=== PATIENT | female | born 1970 | race Caucasian/White ===

== ENCOUNTER → 2022-03-24 | Outpatient (CLI) | payer OTHER, SELFPAY ==
--- NOTE | 2022-03-24 09:21 | EKG12_ITS ---
Test Reason : PREOP Blood Pressure : / mmHG Vent. Rate : 079 BPM Atrial Rate : 079 BPM P-R Int : 160 ms QRS Dur : 066 ms QT Int : 400 ms P-R-T Axes : 039 011 028 degrees QTc Int : 458 ms Normal sinus rhythm Normal ECG Confirmed by JULIEN GOMEZ, YEIMY ([id number]), electronic news gathering editor BRISA HEAD ([id number]) on 03/24/2022 2:08:40 PM Referred By: DIXIE Confirmed By:YEIMY VICTORIA MD
[2022-03-24 10:00] LABS: Hematocrit 46.7 % (37-47); Hemoglobin 15.6 g/dL (12.0-15.0); Mean Corp Hgb Conc 33.4 g/dL (32-36); Mean Corpuscular Hgb 30.4 pg (27.0-32.0); Mean Platelet Vol. 11.5 fl (6.2-12.0); Platelet Count 220 K/mm3 (150-450); RBC Distribution Width CV 12.4 % (11.6-14.6); RBC Distribution Width SD 41.2 fl (35.1-43.9); Red Blood Count 5.13 M/mm3 (4.2-5.4); White Blood Count 10.2 K/mm3 (4.4-11.0)
[2022-03-24 10:25] LABS: Hemoglobin A1c 7.2 % (3.8-5.6)
[2022-03-24 10:45] LABS: Anion Gap 2 (5-15); BUN 12 mg/dL (7-18); BUN/Creat Ratio 13.4 RATIO (10-20); Calcium,Total 9.3 mg/dL (8.5-10.1); Chloride 106 mmol/L (98-107); Creatinine, Serum 0.89 mg/dL (0.55-1.02); EST Glomerular Filtration Rate 70 mL/min (>60); Est Glom Filt Rate - Afr Amer 85 mL/min (>60); Glucose 142 mg/dL (74-106); Potassium 4.2 mmol/L (3.5-5.1); Sodium Level 136 mmol/L (136-145)
== END | disposition home or self-care (01) ==
PROVIDERS: Physician Assistant; PCP Physician Assistant; Visit Provider Orthopaedic Surgery
DX: Z01.812 Encounter for preprocedural laboratory examination (principal)
CPT/HCPCS: 36415; 80048; 83036; 85027; 93005

== ENCOUNTER → 2022-04-14 | Outpatient (CLI) | payer OTHER, SELFPAY ==
--- NOTE | 2022-04-14 12:50 | VDLE_ITS ---
Reason For Study: LLE EDEMA RIGHT LEFT CFV is compressible, spontaneous, phasic, GSV is normal. competent and demonstrates normal CFV is compressible, spontaneous, phasic, augmentation. competent, and demonstrates normal Procedure augmentation. This is a venous duplex using B-mode, color FV is compressible, spontaneous, phasic, flow and spectral Doppler. competent and demonstrates normal Exam performed in department. augmentation. A preliminary report was called and/or faxed POP V is compressible, spontaneous, phasic, to Dr. Hernandez @ [phone] @ 1:15 pm. competent and demonstrates normal augmentation. T/P Trunk is compressible. PTV is compressible. LT PerV is compressible. LT Gastrocnemius V is compressible. Non-vascular structure noted in the LT Pop Fossa Space measuring approx 3.0 x 4.5 x 4.5cm. VL/Venous Duplex US, Unilateral Interpretation Summary Deep veins of the left lower extremity are patent and compressible segmentally. There is no evidence of left lower extremity deep vein thrombosis. Valvular competence appears intac t within the proximal deep venous system on the left . The left great saphenous vein appears patent a nd compressible segmentally. A non-vascular, hypoechoic structure is noted in the left poplitea l space, measuring 3.0 cm x 4.5 cm x 4.5 cm. This probably represents a popliteal cyst. Clinical c orrelation is advised. Ordering Physician: Irineo Hernandez Referring Physician: Mary Jo Kwon Performed By: Vaishali Cornelius, SHAYNA, RVT
== END | disposition home or self-care (01) ==
LOC: CVS 12:48
PROVIDERS: PCP Physician Assistant; Referring Provider Orthopaedic Surgery; Visit Provider Orthopaedic Surgery
DX: R60.0 Localized edema (principal); M79.662 Pain in left lower leg
CPT/HCPCS: 93971

== ENCOUNTER → 2024-02-23 | Outpatient (CLI) | payer OTHER, SELFPAY ==
[2024-02-23 09:01] LABS: Absolute Lymphocyte Count 2.92 X10^3/uL (0.83-4.51); Absolute Neutrophil Count 4.6 X10^3/uL (2.0-7.7); Basophil# 0.05 X10^3/uL; Basophil% 0.6 % (0-1); Eosinophil# 0.24 X10^3/uL; Eosinophils% 2.9 % (0-5); Hematocrit 45.5 % (37-47); Hemoglobin 15.2 g/dL (12.0-15.0); Lymphocyte # 2.92 X10^3/ul (0.83-4.51); Lymphocyte % 35.4 % (19-41); Mean Corp Hgb Conc 33.4 g/dL (32-36); Mean Corpuscular Hgb 29.5 pg (27.0-32.0); Mean Corpuscular Volume 88.3 fL (81-99); Mean Platelet Vol. 11.8 fl (6.2-12.0); Monocyte# 0.44 X10^3/uL; Monocyte% 5.3 % (0-10); NRBC Flagged by Analyzer 0 % (0-5); Neutrophil # 4.56 X10^3/uL (2.7-7.7); Neutrophil % 55.4 % (47-70); Platelet Count 213 K/mm3 (150-450); RBC Distribution Width CV 12.3 % (11.6-14.6); Red Blood Count 5.15 M/mm3 (4.2-5.4); White Blood Count 8.2 K/mm3 (4.4-11.0)
[2024-02-23 09:23] LABS: Hemoglobin A1c 6.2 % (3.8-5.6)
[2024-02-23 09:35] LABS: ALB/GLOB Ratio 0.8 RATIO (0.9-2.4); AST(SGOT) 22 U/L (15-37); Alanine Aminotransfer ALT/SGPT 29 U/L (13-56); Albumin, Serum 3.5 g/dL (3.2-5.0); Alkaline Phosphatase 82 U/L (45-117); Anion Gap 6 (5-15); BUN 19 mg/dL (7-18); BUN/Creat Ratio 23.8 RATIO (10-20); Calcium,Total 9.4 mg/dL (8.5-10.1); Chloride 106 mmol/L (98-107); Cholesterol 202 mg/dL (200); EST Glomerular Filtration Rate 80 mL/min (>60); Est Glom Filt Rate - Afr Amer 96 mL/min (>60); Ferritin 208 ng/mL (8-252); Globulin 4.4 g/dL (2.2-4.2); Glucose 132 mg/dL (74-106); High Density Lipoprotein 74 mg/dL; Iron 73 ug/dL (50-170); Iron Binding Capacity,Total 313 ug/dL (250-450); PERCENT IRON SATURATION 23.3 % (15.0-55.0); Potassium 3.9 mmol/L (3.5-5.1); Protein, Total 7.9 g/dL (6.4-8.2); Sodium Level 139 mmol/L (136-145); T4 Total, Thyroxin 11.5 ug/dL (4.8-13.9); Thyroid Stim Hormone (TSH) 0.66 uIU/mL (0.358-3.74); Triglycerides 184 mg/dL; Very Low Density Lipoprotein 37 mg/dL (5-40)
[2024-02-25 15:23] LABS: Vitamin B12 578 pg/mL (211-911); Vitamin D,25 Hydroxy 83.8 ng/mL
[2024-02-26 14:08] LABS: Methylmalonic Acid Bld 194 nmol/L (0-378)
[2024-02-29 09:07] LABS: Folate, Hemolysate Test > 620.0 ng/mL (Not Estab.); Folate, RBC (Hct) Test 45.7 % (34.0-46.6); Folates, RBC Test > 1357 ng/mL (>498); Transferrin 240 mg/dL (192-364); Vitamin B1, Thiamine 191.5 nmol/L (66.5-200.0); Zinc, Plasma or Serum 91 ug/dL (44-115)
== END | disposition home or self-care (01) ==
PROVIDERS: PCP Physician Assistant
DX: E78.00 Pure hypercholesterolemia, unspecified (principal); E11.9 Type 2 diabetes mellitus without complications; K76.2 Central hemorrhagic necrosis of liver; E05.90 Thyrotoxicosis, unspecified without thyrotoxic crisis or storm; D64.9 Anemia, unspecified; D50.9 Iron deficiency anemia, unspecified; E53.8 Deficiency of other specified B group vitamins; E56.9 Vitamin deficiency, unspecified; E55.9 Vitamin D deficiency, unspecified; R79.0 Abnormal level of blood mineral
CPT/HCPCS: 36415; 80053; 80061; 82306; 82607; 82728; 82747; 83036; 83540; 83550; 83921; 84425; 84436; 84443; 84466; 84630; 85014; 85025

== ENCOUNTER 2024-09-23 05:58 | Day surgery (SDC) | payer BC, SELFPAY ==
[2024-09-23] VITALS (9 sets, daily range): BP systolic 123–156; BP diastolic 80–102; PULSE 76–105; RESP 14–18; TEMP 36–36.3; O2SAT 95–100; BMI 32.1
[2024-09-23] MEDS: 0.9% Normal Saline (1000mL) 1,000 ML 15 ML IV (06:49)
--- NOTE | 2024-09-23 07:24 | PCM.PRE.AN2 ---
ASA Classification* ASA Classification ASA Classification: 2 Assessment & Plan Anesthesia* Anesthesia Assessment Anesthesia Assessment: Discussed sedation and/or anesthesia options, risks, benefits, and alternatives with patient/parents/legal guardian/POA. Questions invited. The patient/parents/legal guardian/POA seems to understand and agrees to proceed with anesthesia plan. Reviewed the physical assessment, medical history, allergy history and patient home medications list prior to surgery/procedure/anesthetic and documented any changes. Performed airway and anesthesia risk assessments. Anesthesia Type Anesthesia Type: MAC (GA bkup) Anesthesia Focused Assessment* Temperature: 97.2 F Pulse Rate: 76 Blood Pressure: 123/85 Respiratory Rate: 18 Pulse Ox: 98 Airway Assessment Mouth opens: >3 cm Mallampati Score: II Focused Labs Anesthesia Preop lab: CBC WBC 8.2 K/mm3 (4.4-11.0) 02/23/24 07:51 02/23/24 RBC 5.15 M/mm3 (4.2-5.4) 02/23/24 07:51 02/23/24 Hgb 15.2 g/dL (12.0-15.0) H 02/23/24 07:51 02/23/24 Hct 45.5 % (37-47) 02/23/24 07:51 02/23/24 Plt Count 213 K/mm3 (150-450) 02/23/24 07:51 02/23/24 CHEMISTRY Potassium 3.9 mmol/L (3.5-5.1) 02/23/24 07:51 02/23/24 Sodium 139 mmol/L (136-145) 02/23/24 07:51 02/23/24 BUN 19 mg/dL (7-18) H 02/23/24 07:51 02/23/24 Creatinine 0.80 mg/dL (0.55-1.02) 02/23/24 07:51 02/23/24 Glucose 132 mg/dL (74-106) H 02/23/24 07:51 02/23/24 TSH 0.66 uIU/mL (0.358-3.74) 02/23/24 07:51 02/23/24 COAG Pre-Assessment Diagnosis/Proposed Procedure Planned Operative Procedure(s): (L) Left second and third hammer toe correction with omar osteotomy to second metatarsal. Anesthesia History Anesthesia History - health information manager: Anesthesia History - health information manager Hx Hospitalization Yes: 10/23/23 BARIATRIC 09/19/24 09:17 SURGERY Any Problems With Anesthesia Yes: N&V 09/19/24 09:17 Cholinesterase deficiency No 09/19/24 09:17 You/Your Family Experience No 09/19/24 09:17 fever (hyperthermia) with Relationship Recent Exposure to Contagious No 09/23/24 06:39 Disease Does patient have nerve No 09/19/24 09:17 stimulator Patient instructed to have device shut off --Does patient have Pacemaker or ICD? When Was Last Pacemaker Check QUESTION #4 FULL TEXT: You/Your Family Experience fever (hyperthermia) with Anesthesia Last Oral Intake Last Oral intake: Last Oral Intake NPO since 23:30 09/23/24 06:39 Meds taken in AM with sips of No 09/23/24 06:39 water? Meds patient instructed to take am of surgery PONV PONV - health information manager: PONV - health information manager Female Yes 09/19/24 09:17 HX of Motion Sickness Yes 09/19/24 09:17 HX of N/V After Surgery Yes 09/19/24 09:17 Non-Smoker No 09/19/24 09:17 Duration of Surgery greater Yes 09/19/24 09:17 than 60 minutes Number of Risk Factors 4 09/19/24 09:17 PONV Score Severe Risk 09/19/24 09:17 Height & Weight Height & Weight: Anesthesia: Height & Weight Height 5 ft 7 in 09/23/24 06:39 Weight: 93.1 kg 09/23/24 06:39 Body Mass Index (BMI) 32.1 09/23/24 06:39 Respiratory Assessment Respiratory Assessment - health information manager: Respiratory Tract Infection Hx - health information manager Hx Respiratory Tract Infection No 09/19/24 09:17 STOP Sleep Apnea STOP Sleep Apnea - health information manager: STOP Sleep Apnea - health information manager Hx Hypertension No 09/19/24 09:17 Hx Sleep Apnea No 09/19/24 09:17 CPAP No 09/19/24 09:17 BIPAP Do you snore loudly (louder No 09/19/24 09:17 than talking or can be heard Do you often feel tired/ No 09/19/24 09:17 fatigued/ sleepy during daytime? Has anyone observed you stop No 09/19/24 09:17 breathing during sleep? STOP Results Negative 09/19/24 09:17 QUESTION #5 FULL TEXT : Do you snore loudly (louder than talking or can be heard through closed doors)? 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 Specify any problems Hx of Preganancy in last 3 No 09/19/24 09:17 Months Nurse Filling Out Transfusion VCHRISTIN 09/19/24 09:17 & Questions: Date: 09/19/24 09/19/24 09:17 Time: 09:19 09/19/24 09:17 Patient unable to answer at this time (ie. confused, unrespo /Reproduction History /Reproductive History - health information manager: /Reproductive Hx- health information manager Hx Now Gestational Age (in weeks): EDC: Hx Hx Para Hx Section SAB Active Medications Active Medications: Current Medications Generic Name Dose Route Start Last Admin Trade Name Freq PRN Reason Stop Dose Admin Cefazolin Sodium 2 gm/ N/A 20 mls @ 400 mls/hr 09/23/24 07:30 IV 09/23/24 07:32 PREOP ONE Sodium Chloride 1,000 mls @ 15 mls/hr 09/23/24 06:10 09/23/24 06:49 IV 09/28/24 19:29 15 mls/hr .Q48H JAVI Administration Protocol [facility] Medical History Wears glasses Post-menopausal DVT (deep venous thrombosis) Injury of head and neck Non-smoker History of irregular heartbeat History of stress test Obesity Allergic rhinitis Menopause Umbilical hernia Hyperlipidemia Hypertension Home Medications ?Medication ?Instructions ?Recorded ?Last Taken ?Type aspirin 81 mg tablet,delayed 81 mg PO DAILY 03/01/24 09/22/24 History release (Adult Aspirin Regimen) biotin 1,000 mcg chewable tablet 1,000 mcg PO DAILY 03/01/24 09/22/24 History cholecalciferol (vitamin D3) 350 350 mcg PO DAILY 03/01/24 09/18/24 History mcg (14,000 unit) oral wafer multivitamin (Daily Multi-Vitamin 1 tab PO DAILY 09/19/24 09/22/24 History tablet) thiamine HCl (vitamin B1) 50 mg 50 mg PO DAILY 09/19/24 09/22/24 History tablet (Vitamin B-1) calcium carbonate (Calcium 500) 500 mg PO DAILY 09/23/24 09/22/24 History Allergy/AdvReac Type Severity Reaction Status Date / Time No Known Allergies Allergy Verified 09/23/24 06:33 Family History Other CAD (coronary artery disease) Heart disease Hypertension Myocardial infarction Surgical History Hx of anterior cruciate ligament surgery Hx of umbilical hernia repair Hx laparoscopic cholecystectomy History of partial hysterectomy History of bariatric surgery Social History Smoking Status: Never smoker alcohol intake: current details: occasional Review of Systems (Anesthesia) ROS Narrative System reviewed and no additional complaints, except as documented.
--- NOTE | 2024-09-23 07:30 | RAD_ITS ---
PROCEDURE: TOE(S) MIN 2 VIEWS; O.R. FLUORO FOR C-ARM REASON FOR EXAM: Left 2nd and 3rd toe hammertoe corrections, with additional surgeries. TECHNIQUE: Intraoperative fluoroscopy, also with 6 fluoroscopic images obtained. COMPARISON: None. RAD/Toe(s) Min 2 Views IMPRESSION: Intraoperative fluoroscopy left 2nd and 3rd toes, also with 6 fluoroscopic imag es obtained during surgery of the 2nd and 3rd toes. Reading Location: [id number]
--- NOTE | 2024-09-23 07:30 | RAD_ITS ---
PROCEDURE: TOE(S) MIN 2 VIEWS; O.R. FLUORO FOR C-ARM REASON FOR EXAM: Left 2nd and 3rd toe hammertoe corrections, with additional surgeries. TECHNIQUE: Intraoperative fluoroscopy, also with 6 fluoroscopic images obtained. COMPARISON: None. RAD/O.R. Fluoro for C-Arm IMPRESSION: Intraoperative fluoroscopy left 2nd and 3rd toes, also with 6 fluoroscopic imag es obtained during surgery of the 2nd and 3rd toes. Reading Location: [id number]
--- NOTE | 2024-09-23 07:34 | PRE.ANES_ITS ---
ASA Classification* ASA Classification ASA Classification: 3 Assessment & Plan Anesthesia* Anesthesia Assessment Anesthesia Assessment: Discussed sedation and/or anesthesia options, risks, benefits, and alternatives with patient/parents/legal guardian/POA. Questions invited. The patient/parents/legal guardian/POA seems to understand and agrees to proceed with anesthesia plan. Reviewed the physical assessment, medical history, allergy history and patient home medications list prior to surgery/procedure/anesthetic and documented any changes. Performed airway and anesthesia risk assessments. Anesthesia Type Anesthesia Type: General History Source History Obtained from:: Patient Anesthesia Focused Assessment* Temperature: 97.2 F Pulse Rate: 76 Blood Pressure: 123/85 Respiratory Rate: 18 Pulse Ox: 98 Oxygen Delivery Method: Room Air Airway Assessment Mouth opens: >3 cm Mallampati Score: II Teeth Condition: Intact Neck Range of motion (ROM): Full ROM Focused Labs Anesthesia Preop lab: CBC WBC 8.2 K/mm3 (4.4-11.0) 02/23/24 07:51 02/23/24 RBC 5.15 M/mm3 (4.2-5.4) 02/23/24 07:51 02/23/24 Hgb 15.2 g/dL (12.0-15.0) H 02/23/24 07:51 4 Hct 45.5 % (37-47) 02/23/24 07:51 02/23/24 Plt Count 213 K/mm3 (150-450) 02/23/24 07:51 02/23/24 CHEMISTRY Potassium 3.9 mmol/L (3.5-5.1) 02/23/24 07:51 02/23/24 Sodium 139 mmol/L (136-145) 02/23/24 07:51 02/23/24 BUN 19 mg/dL (7-18) H 02/23/24 07:51 02/23/24 Creatinine 0.80 mg/dL (0.55-1.02) 02/23/24 07:51 02/23/24 Glucose 132 mg/dL (74-106) H 02/23/24 07:51 02/23/24 TSH 0.66 uIU/mL (0.358-3.74) 02/23/24 07:51 COAG Pre-Assessment Diagnosis/Proposed Procedure Planned Operative Procedure(s): (L) Left second and third hammer toe correction with omar osteotomy to second metatarsal. Anesthesia History Anesthesia History - director of strategic sourcing: Anesthesia History - director of strategic sourcing Hx Hospitalization Yes: 10/23/23 BARIATRIC 09/19/24 09:17 SURGERY Any Problems With Anesthesia Yes: N&V 09/19/24 09:17 Cholinesterase deficiency No 09/19/24 09:17 You/Your Family Experience No 09/19/24 09:17 fever (hyperthermia) with Relationship Recent Exposure to Contagious No 09/23/24 06:39 Disease Does patient have nerve No 09/19/24 09:17 stimulator Patient instructed to have device shut off --Does patient have Pacemaker or ICD? When Was Last Pacemaker Check QUESTION #4 FULL TEXT: You/Your Family Experience fever (hyperthermia) with Anesthesia Last Oral Intake Last Oral intake: Last Oral Intake NPO since 23:30 09/23/24 06:39 Meds taken in AM with sips of No 09/23/24 06:39 water? Meds patient instructed to take am of surgery PONV PONV - director of strategic sourcing: PONV - director of strategic sourcing Female Yes 09/19/24 09:17 HX of Motion Sickness Yes 09/19/24 09:17 HX of N/V After Surgery Yes 09/19/24 09:17 Non-Smoker No 09/19/24 09:17 Duration of Surgery greater Yes 09/19/24 09:17 than 60 minutes Number of Risk Factors 4 09/19/24 09:17 PONV Score Severe Risk 09/19/24 09:17 Height & Weight Height & Weight: Anesthesia: Height & Weight Height 5 ft 7 in 09/23/24 06:39 Weight: 93.1 kg 09/23/24 06:39 Body Mass Index (BMI) 32.1 09/23/24 06:39 Respiratory Assessment Respiratory Assessment - director of strategic sourcing: Respiratory Tract Infection Hx - director of strategic sourcing Hx Respiratory Tract Infection No 09/19/24 09:17 STOP Sleep Apnea STOP Sleep Apnea - director of strategic sourcing: STOP Sleep Apnea - director of strategic sourcing Hx Hypertension No 09/19/24 09:17 Hx Sleep Apnea No 09/19/24 09:17 CPAP No 09/19/24 09:17 BIPAP Do you snore loudly (louder No 09/19/24 09:17 than talking or can be heard Do you often feel tired/ No 09/19/24 09:17 fatigued/ sleepy during daytime? Has anyone observed you stop No 09/19/24 09:17 breathing during sleep? STOP Results Negative 09/19/24 09:17 QUESTION #5 FULL TEXT : Do you snore loudly (louder than talking or can be heard through closed doors)? Tobacco Use History Tobacco Use History - director of strategic sourcing: Tobacco Use History - director of strategic sourcing Tobacco Use Smoking Status Never smoker 09/19/24 09:17 Hx Tobacco Use No 09/19/24 09:17 Years Smoking Packs Smoked per Day Smoking Cessation Date was within the last 15 years Hx Smoking Cessation Date Hx Smoking Cessation Counseling Hematologic Medial History Hematologic Hx - director of strategic sourcing: Hematologic Medical Hx - superior court justice Hx of Blood Transfusion No 09/19/24 09:17 Hx of Transfusion in last 3 No 09/19/24 09:17 Months Date of Last Transfusion (if within last 3 months) Ever experience any problems No 09/19/24 09:17 with transfusion(s)? Specify any problems Hx of Preganancy in last 3 No 09/19/24 09:17 Months Nurse Filling Out Transfusion VCHRISTIN 09/19/24 09:17 & Questions: Date: 09/19/24 09/19/24 09:17 Time: 09:19 09/19/24 09:17 Patient unable to answer at this time (ie. confused, unrespo /Reproduction History /Reproductive History - director of strategic sourcing: /Reproductive Hx- director of strategic sourcing Hx Now Gestational Age (in weeks): EDC: Hx Hx Para Hx Section SAB Active Medications Active Medications: Current Medications Generic Name Dose Route Start Last Admin Trade Name Freq PRN Reason Stop Dose Admin Sodium Chloride 1,000 mls @ 15 mls/hr 09/23/24 06:10 09/23/24 06:49 IV 09/28/24 19:29 15 mls/hr .Q48H JAVI Administration Protocol [facility] Medical History Wears glasses Post-menopausal DVT (deep venous thrombosis) Injury of head and neck Non-smoker History of irregular heartbeat History of stress test Obesity Allergic rhinitis Menopause Umbilical hernia Hyperlipidemia Hypertension Home Medications ?Medication ?Instructions ?Recorded ?Last Taken ?Type aspirin 81 mg tablet,delayed 81 mg PO DAILY 03/01/24 0 09/22/24 History release (Adult Aspirin Regimen) biotin 1,000 mcg chewable tablet 1,000 mcg PO DAILY 09/22/24 History cholecalciferol (vitamin D3) 350 350 mcg PO DAILY 05/1709/18/24 History mcg (14,000 unit) oral wafer multivitamin (Daily Multi-Vitamin 1 tab PO DAILY 09/1909/22/24 History tablet) thiamine HCl (vitamin B1) 50 mg 50 mg PO DAILY 5 09/22/24 History tablet (Vitamin B-1) calcium carbonate (Calcium 500) 500 mg PO DAILY 09/22/24 History Allergy/AdvReac Type Severity Reaction Status Date / Time No Known Allergies Allergy Verified 09/23/24 06:33 Family History Other CAD (coronary artery disease) Heart disease Hypertension Myocardial infarction Surgical History Hx of anterior cruciate ligament surgery Hx of umbilical hernia repair Hx laparoscopic cholecystectomy History of partial hysterectomy History of bariatric surgery Social History Smoking Status: Never smoker alcohol intake: current details: occasional Review of Systems (Anesthesia) ROS Narrative System reviewed and no additional complaints, except as documented.
[2024-09-23] MEDS: Cefazolin 2 GM in Syringe IV (07:50)
[2024-09-23] MEDS: Bupivacaine Mpf 0.5% 30 ML VIAL (08:29)
--- NOTE | 2024-09-23 09:59 | PCM.POST.ANE ---
Anesthesia: Postop Eval I Current Vital Signs Temperature: 97.3 F Pulse Rate: 98 Blood Pressure: 150/102 Respiratory Rate: 14 Pulse Ox: 96 Oxygen Delivery Method: Room Air Assessment Airway patent: Yes Spontaneous unlabored respirations: Yes Mental status: Awake nausea: No Vomiting: No Anesthesia Complication: No Fluid Hydration Crystalloid volume administer (ml): 900 Total IV fluid infused: 900 Progress Note Anesthesia document: Postop Eval 1 completed: Yes
--- NOTE | 2024-09-23 09:59 | PCM.OPRPT ---
Problems Associated Problem List Diagnoses (1) Other hammer toe(s) (acquired), left foot: (2) Acquired deformity of left foot: Operative Report (Standard) Operative Information Date of Procedure: 09/23/24 Pre-Operative Diagnosis: 1) Hammertoe Left 2nd and 3rd toe 2) Long left 2nd metatarsal Post-Operative Diagnosis: same Surgery/Procedure Performed: 1) Left 2nd metatarsal ochoa osteotomy 2) PIPJ arthrodesis left 2nd toe 3) PIPJ arthrodesis left 3rd toe school supervisor: Yes Fabricator Special Items: Juan Miguel Macario Tasks completed by reference assistant: Opening, Closing, Opening & closing and Altering tissue Type of Anesthesia: Local MAC RN Documented Start/Stop Times: Operation Date: 09/23/24 07:30 Case Time Into Pre-Op 09/23/24 06:08 Out of Pre-Op 09/23/24 07:32 Anesthesia Start 09/23/24 07:38 Into Room 09/23/24 07:38 Procedure Start 09/23/24 08:01 Procedure End 09/23/24 09:37 Anesthesia End 09/23/24 09:47 Out of Room 09/23/24 09:47 Into Recovery 09/23/24 09:51 Procedure Start Time: 08:00 Procedure Stop Time: 09:30 Select all DRAINS/GRAFTS/IMPLANTS that apply: Implanted device ([employer] digital implant left 2nd and 3rd toe) Implanted device details: phalinx Estimated Blood Loss: minimal Specimen collected: No Description of surgery: Patient hammertoe due to left second and third toe with PIPJ pain dorsally additionally patient had pain to the left second metatarsal phalangeal joint and along second ray radiographically decision was made after failed conservative treatment for surgical management. Patient was brought back the operating placed comfortably in supine position on the operating room table. Patient induced under MAC anesthesia. Local anesthesia block performed with 10 cc half percent Marcaine plain to the second and third rays using standard technique aseptically. Well-padded left ankle tourniquet applied. Left lower extremity bump to knock out any external rotation. Left lower extremity scrubbed prepped draped using typical aseptic fashion. Left second toe proximal interphalangeal joint arthrodesis: Once cleared by anesthesia left lower extremity was elevated exsanguinated tourniquet was inflated to 250 mmHg. A linear incision was drawn and made dorsally over the left second toe extending from distal to the distal interphalangeal joint to the proximal to the metatarsal phalangeal joint this was made full-thickness through epidermis dermis subcutaneous tissue with a 15 blade any bleeders identified cauterized neurovascular structures identified protected with blunt retraction. Blunt dissection taken down the level of the deep fascia a transverse tenotomy of the extensor tendon performed at the proximal interphalangeal joint the medial lateral collateral ligaments were released and the proximal interphalangeal joint was exposed the extensor tendon was dissected off of the proximal phalanx down to the level of the metatarsal phalangeal joint at which time this was performed using pickups and a 15 blade at which time the dorsal medial and lateral aspects of the second metatarsal phalangeal joint were released using combination 15 blade and Littler dissecting scissors. Attention was taken back to the proximal interphalangeal joint at which time saw cuts were performed removing the proximal phalangeal head and middle phalangeal base for joint prepping site was flushed with saline. The phalanx device was implanted using manufactures guidelines to the proximal interphalangeal joint with good apposition of the proximal interphalangeal joint with the second toe held in a rectus position with regards to the metatarsal phalangeal joint proximal interphalangeal joint and distal interphalangeal joint. Left third proximal interphalangeal joint arthrodesis Once cleared by anesthesia left lower extremity was elevated exsanguinated tourniquet was inflated to 250 mmHg. A linear incision was drawn and made dorsally over the left second toe extending from distal to the distal interphalangeal joint to the proximal to the metatarsal phalangeal joint this was made full-thickness through epidermis dermis subcutaneous tissue with a 15 blade any bleeders identified cauterized neurovascular structures identified protected with blunt retraction. Blunt dissection taken down the level of the deep fascia a transverse tenotomy of the extensor tendon performed at the proximal interphalangeal joint the medial lateral collateral ligaments were released and the proximal interphalangeal joint was exposed the extensor tendon was dissected off of the proximal phalanx down to the level of the metatarsal phalangeal joint at which time this was performed using pickups and a 15 blade at which time the dorsal medial and lateral aspects of the second metatarsal phalangeal joint were released using combination 15 blade and Littler dissecting scissors. Attention was taken back to the proximal interphalangeal joint at which time saw cuts were performed removing the proximal phalangeal head and middle phalangeal base for joint prepping site was flushed with saline. The phalanx device was implanted using manufactures guidelines to the proximal interphalangeal joint with good apposition of the proximal interphalangeal joint with the second toe held in a rectus position with regards to the metatarsal phalangeal joint proximal interphalangeal joint and distal interphalangeal joint. Left second metatarsal Ochoa osteotomy: Attention was then taken to the left second metatarsal phalangeal joint the distal second metatarsal was exposed distally to allow for Ochoa cut the Ochoa cut was used with performed using a sagittal saw and was made starting in the dorsal articular surface of the second metatarsal joint phalangeal joint and extended proximally parallel to the plantar weightbearing surface of the foot until it was made through and through the second metatarsal phalangeal joint was then shortened by approximately 3 mm and was stabilized and fixated in this position using a 2 7 pop-off screw from [email or web address]. Fluoroscopic imaging was used and no rectus alignment of the left second and third toe with adequate fixation second metatarsal and reestablishment of the normal metatarsal parabola. At this time tourniquet was let down total tourniquet time was noted to be 62 minutes. There is noted to be a bleeder along the proximal aspect of the second and third interphalangeal joint incisional sites this was cauterized good hemostasis was then noted. Sites were flushed with copious amounts of normal sterile saline. Extensor tendon repair was performed using an 2 and technique with 4-0 Monocryl. Subcutaneous closure performed with running 4-0 Monocryl. Skin closure performed with simple interrupted 4-0 nylon. This performed to the left second and third toes. Additional 20 cc half percent Marcaine plain were used to block the second and third rays using standard technique. This makes a total of 30 cc half percent Marcaine plain. Sites were cleansed and then dressed with Betadine Adaptic 4 x 4's Kerlix and a well-padded AO splint with foot and ankle held in rectus position. Patient was transported to PACU vital signs stable vascular status intact all digits for further monitoring prior to discharge. Patient tolerated procedure and anesthesia well apparent satisfactory condition. Rectus left second and third toe noted. No complications No specimen Surgical Findings: as dictated above Complications Complications: No Admit VTE Documentation VTE Present on Admission: Yes VTE Pharm Prophylaxis ordered?: Yes
--- NOTE | 2024-09-23 10:16 | POSTOPAN2_ITS ---
Anesthesia Postop Eval I Sum Postop Eval Completion status Anesthesia document: Postop Eval 1 completed: Yes Anesthesia Postop Eval I Summary Anesthesia Postop Eval I Summary: Anesthesia Postop Eval I: Assessment Summary Airway patent Yes 09/23/24 10:00 OFFICE ADMIN.APAT Spontaneous unlabored Yes 09/23/24 10:00 OFFICE ADMIN.APAT respirations Mental status Awake 09/23/24 10:00 OFFICE ADMIN.APAT nausea No 09/23/24 10:00 OFFICE ADMIN.APAT Vomiting No 09/23/24 10:00 OFFICE ADMIN.APAT Anesthesia Postop Eval I: Fluid Summary Crystalloid volume administer 900 09/23/24 10:00 OFFICE ADMIN.APAT (ml) Colloids volume administered ( ml) Blood Product volume administered (ml) Total IV fluid infused 900 09/23/24 10:00 OFFICE ADMIN.APAT Anesthesia Postop Eval I: Summary Notes Anesthesia Complication No 09/23/24 10:00 OFFICE ADMIN.APAT Anesthesia Complication Comment: Post-operative progress note Anesthesia: Postop Eval II Evaluation Mental status: Awake Pain Level: 0 nausea: No Vomiting: No
--- NOTE | 2024-09-23 10:16 | PCM.POSTANE2 ---
Anesthesia Postop Eval I Sum Postop Eval Completion status Anesthesia document: Postop Eval 1 completed: Yes Anesthesia Postop Eval I Summary Anesthesia Postop Eval I Summary: Anesthesia Postop Eval I: Assessment Summary Airway patent Yes 09/23/24 10:00 PLANT MAINTENANCE [email or web address].APAT Spontaneous unlabored Yes 09/23/24 10:00 PLANT MAINTENANCE ENGINEER.APAT respirations Mental status Awake 09/23/24 10:00 PLANT MAINTENANCE ENGINEER.APAT nausea No 09/23/24 10:00 PLANT MAINTENANCE ENGINEER.APAT Vomiting No 09/23/24 10:00 PLANT MAINTENANCE ENGINEER.APAT Anesthesia Postop Eval I: Fluid Summary Crystalloid volume administer 900 09/23/24 10:00 PLANT MAINTENANCE ENGINEER.APAT (ml) Colloids volume administered ( ml) Blood Product volume administered (ml) Total IV fluid infused 900 09/23/24 10:00 PLANT MAINTENANCE [email or web address].APAT Anesthesia Postop Eval I: Summary Notes Anesthesia Complication No 09/23/24 10:00 PLANT MAINTENANCE ENGINEER.APAT Anesthesia Complication Comment: Post-operative progress note Anesthesia: Postop Eval II Evaluation Mental status: Awake Pain Level: 0 nausea: No Vomiting: No
== END 2024-09-23 12:10 | disposition home or self-care (01) ==
LOC: SDC 05:58 → AC 05:59
PROVIDERS: PCP Physician Assistant; Referring Provider Podiatrist; Visit Provider Podiatrist
PROC: (CPT 28285; principal; 2024-09-23 07:15)
DX: M20.42 Other hammer toe(s) (acquired), left foot (principal); M21.6X2 Other acquired deformities of left foot
CPT/HCPCS: 28285; 28308; 01480; 73660; 76000; C1713; J2405

== ENCOUNTER → 2025-01-19 | Outpatient (CLI) | payer BC, SELFPAY ==
--- NOTE | 2025-01-19 08:40 | BI_ITS ---
EXAM: DIAG MAMM W/CAD, UNILAT 01/19/2025 CLINICAL HISTORY: F, Age 54 y/o , ABN MAMM TECHNIQUE: Bilateral Diagnostic digital breast tomosynthesis with 2D and 3D images. Compression spot views were obtained as well. Computer aided detection. COMPARISON: Prior exam(s) dated December 28, 2024.. FINDINGS: TISSUE DENSITY: The breast tissue is composed of scattered area of fibroglandular density. Bilateral Breast Mammographic Findings: Questionable 4.2 mm nodular density in the deep upper lateral aspect of the right breast. Correlation with ultrasound recommended. BI/DIAG MAMM W/CAD, UNILAT IMPRESSION: OVERALL FINAL ASSESSMENT: BIRADS 0 Incomplete: Need additional imaging evaluati on and/or prior mammograms for comparison.. RECOMMENDATION: Targeted sonogram of the upper-outer quadrant of the right breast recommended. A letter with findings and recommendations will be mailed to the patient. Reading Location: [id number]
--- NOTE | 2025-01-19 08:40 | US_ITS ---
PROCEDURE: BREAST LIMITED UNILATERAL 01/19/2025 REASON FOR EXAM: ABN MAMM TECHNIQUE: Targeted right breast ultrasound. COMPARISON: Prior mammogram done earlier in the day. FINDINGS: Right breast ultrasound was targeted to the lateral half of the breast.. At the 9 o'clock position of the breast at 7 cm from the nipple, there is evidence of a 7 mm x 8 mm x 4 mm well-defined hypoechoic nodule with a fatty hilum suggestive of a small lymph node. Incidental note is made of a 3 mm x 2 mm x 1 mm retroareolar cyst. US/Breast Limited Unilateral IMPRESSION: 7 mm x 8 mm x 4 mm well-defined hypoechoic nodule with a fatty hilum lymph node at the 9 o'clock position of the breast at 7 cm from the nipple. 3 mm x 2 mm x 1 mm retroareolar Follow-up code: Routine Follow-up BI-RADS category 2. Reading Location: [facility]
== END | disposition home or self-care (01) ==
LOC: OPBI 08:38
PROVIDERS: PCP Physician Assistant; Referring Provider Physician Assistant; Visit Provider Physician Assistant
DX: R92.8 Other abnormal and inconclusive findings on diagnostic imaging of breast (principal)
CPT/HCPCS: 76642; 77061; 77065; G0279

== ENCOUNTER → 2025-08-02 | Outpatient (CLI) | payer BC, SELFPAY ==
--- NOTE | 2025-08-02 13:20 | US_ITS ---
PROCEDURE: BREAST LIMITED UNILATERAL 08/02/2025 REASON FOR EXAM: F, Age 54 y/o , ABN MAMM Six-month follow-up examination. COMPARISON: Prior sonogram of the right breast dated January 19, 2025.. TECHNIQUE: Procedure Code: USBRSTLIMIT Modality: US Procedure: BREAST LIMITED UNILATERAL FINDINGS: Stable benign-appearing lymph node measuring 3 mm x 5 mm x 5 mm at the 9 o'clock position of the breast at 7 cm from the nipple. The previously seen subcentimeter cyst in the retroareolar region is not seen at this time. US/Breast Limited Unilateral IMPRESSION: Stable benign-appearing 3 mm x 5 mm x 5 mm lymph node at the 9 o'clock position of the breast at 7 cm from the nipple. The previously seen subcentimeter cyst in the retroareolar region of the right breast is not seen at this time. BI-RADS 2: BENIGN RECOMMENDATION: Routine annual follow-up in 1 Year Reading Location: [facility] [id number]
== END | disposition home or self-care (01) ==
LOC: OPBI 13:19
PROVIDERS: PCP Physician Assistant; Referring Provider Physician Assistant; Visit Provider Physician Assistant
DX: R92.8 Other abnormal and inconclusive findings on diagnostic imaging of breast (principal)
CPT/HCPCS: 76642